=== PATIENT | male | born 1985 | race Caucasian/White ===

== ENCOUNTER → 2020-09-07 18:03 | Outpatient (CLI) | payer OTHER, SELFPAY ==
--- NOTE | ~2020-09-07 | XR_ITS ---
EXAMINATION: XR foot LT min 3V DATE: 09/07/2020 18:57 INDICATION: Left foot pain TECHNIQUE: Dorsoplantar, lateral, and 2 oblique views of the left foot were obtained. COMPARISON: None. FINDINGS: There is no fracture, dislocation, or subluxation. The bones, soft tissues, and joint space s are normal. IMPRESSION: 1. No acute osseous abnormality. Reviewed, dictated and finalized at location A.
== END ==
PROVIDERS: Visit Provider Family Medicine
DX: S93.602A Unspecified sprain of left foot, initial encounter (principal)
CPT/HCPCS: 73630

== ENCOUNTER → 2020-09-28 18:15 | Outpatient (CLI) | payer OTHER, SELFPAY ==
--- NOTE | ~2020-09-28 | MR_ITS ---
EXAMINATION: MR foot LT wo con DATE: 09/28/2020 19:08 INDICATION: Left foot pain and intermittent swelling over 3 months. TECHNIQUE: Magnetic resonance imaging (MRI) of the left fore/mid foot was performed without intraveno us contrast. Sequences included sagittal T1-weighted FSE, sagittal fluid sensitive FSE STIR, coronal PD-weighted FS FSE, coronal T1-weighted FSE, axial PD-weighted FS FSE, and axial PD-weighted FSE. COMPARISON: Left foot radiographs dated 09/07/2020 FINDINGS: Bone alignment is normal with normal marrow signal throughout. No fracture, reactive edema or patholo gic marrow replacing process. Joint spaces are normal with physiologic amount of fluid in the joint s paces. No cortical erosions or other suspicious lytic lesions. Visualized portions of the flexor and extensor tendons are normal. Lisfranc ligament as well as the collateral ligament complex at the meta tarsophalangeal and interphalangeal joints are normal. Normal muscle bulk and signal of the intrinsic musculature of the foot. IMPRESSION: 1. Normal MRI of the left mid and forefoot. Reviewed, dictated and finalized at location A.
== END ==
PROVIDERS: Visit Provider Family Medicine
DX: M79.672 Pain in left foot (principal)
CPT/HCPCS: 73718

== ENCOUNTER 2021-07-04 14:07 | Outpatient (CLI) | payer OTHER, SELFPAY ==
--- NOTE | ~2021-07-04 | US_ITS ---
EXAMINATION: US venous doppler [facility] DATE: 07/04/2021 14:52 INDICATION: Left lower limb pain and numbness TECHNIQUE: Grayscale ultrasound images without and with compression and Doppler ultrasound images of the bilateral lower extremity veins were obtained. COMPARISON: None. FINDINGS: The visualized portions of right common femoral vein, profunda (deep) femoral vein, femoral vein, pop liteal vein, posterior tibial veins, peroneal veins, gastrocnemius vein and greater saphenous vein ou tflow are patent. The visualized portions of left common femoral vein, profunda femoral vein, femoral vein, popliteal v ein, posterior tibial veins, peroneal veins, gastrocnemius vein and greater saphenous vein outflow ar e patent. IMPRESSION: 1. No deep venous thrombosis in either lower limb. Reviewed, dictated and finalized at location A.
== END 2021-07-04 14:08 | disposition home or self-care (01) ==
LOC: ANHIMG 14:12
PROVIDERS: PCP Physician Assistant; Visit Provider Physician Assistant
DX: R20.2 Paresthesia of skin (principal)
CPT/HCPCS: 93970

== ENCOUNTER 2021-07-30 12:54 | Outpatient (CLI) | payer OTHER, SELFPAY | END 2021-07-30 12:55 | disposition home or self-care (01) | LOC: ANHAUDASC 12:54 | PROVIDERS: PCP Physician Assistant; Visit Provider Otolaryngology | DX: H93.11 Tinnitus, right ear (principal) | CPT/HCPCS: 92557; 92567 ==

== ENCOUNTER 2021-08-08 10:16 | Outpatient (CLI) | payer OTHER, SELFPAY ==
--- NOTE | 2021-08-08 11:15 | NEURO_ITS ---
Impression: # Complains of foot pain. # Normal nerve conduction study. # No evidence of planter syndrome. # Normal needle/EMG exam. # Clinical correlation recommended. Nerve Conduction Studies Anti Sensory Summary Table Stim Site NR Peak (ms) P-T Amp (?V) Site1 Site2 Delta-P (ms) Dist (cm) Andrea (m/s) Left Sup Fibular Anti Sensory (Ant Lat Mall) 14 cm 2.6 29.9 14 cm Ant Lat Mall 2.6 16.0 62 Right Sup Fibular Anti Sensory (Ant Lat Mall) 14 cm 3.0 32.7 14 cm Ant Lat Mall 3.0 16.0 53 Left Sural Anti Sensory (Lat Mall) Calf 3.3 17.3 Calf Lat Mall 3.3 16.0 48 Right Sural Anti Sensory (Lat Mall) Calf 3.5 24.2 Calf Lat Mall 3.5 16.0 46 Motor Summary Table Stim Site NR Onset (ms) O-P Amp (mV) Site1 Site2 Delta-0 (ms) Dist (cm) Andrea (m/s) Left Lateral Plantar Motor (ADM) Med Mall 4.7 9.8 Right Lateral Plantar Motor (ADM) Med Mall 4.5 14.5 Left Peroneal Motor (Vastus Med) Ankle 4.9 1.1 Popit Ankle 7.3 37.0 51 Popit 12.2 1.2 Right Peroneal Motor (Vastus Med) Ankle 4.9 2.3 Popit Ankle 6.6 36.0 55 Popit 11.5 2.3 Left Tibial Motor (Abd Mendez Brev) Ankle 4.8 8.3 Knee Ankle 7.3 40.0 55 Knee 12.1 7.1 Right Tibial Motor (Abd Mendez Brev) Ankle 4.3 6.7 Knee Ankle 7.2 39.0 54 Knee 11.5 5.0 F Wave Studies NR F-Lat (ms) L-R F-Lat (ms) Left Peroneal (Mrkrs) (EDB) 47.89 0.70 Right Peroneal (Mrkrs) (EDB) 47.19 0.70 Left Tibial (Mrkrs) (Abd Hallucis) 48.21 0.08 Right Tibial (Mrkrs) (Abd Hallucis) 48.13 0.08 EMG Side Muscle Nerve Root Ins Act Fibs Amp Dur Recrt Comment Right AntTibialis Dp Br Fibular L4-5 Nml Nml Nml Nml Nml Right Gastroc Tibial S1-2 Nml Nml Nml Nml Nml Right Fibularis Long Sup Br Fibular L5-S1 Nml Nml Nml Nml Nml Right Flex Dig Long Tibial L5-S2 Nml Nml Nml Nml Nml Right Ext Dig Brev Dp Br Fibular L5, S1 Nml Nml Nml Nml Nml Left AntTibialis Dp Br Fibular L4-5 Nml Nml Nml Nml Nml Left Gastroc Tibial S1-2 Nml Nml Nml Nml Nml Left Fibularis Long Sup Br Fibular L5-S1 Nml Nml Nml Nml Nml Left Flex Dig Long Tibial L5-S2 Nml Nml Nml Nml Nml Left Ext Dig Brev Dp Br Fibular L5, S1 Nml Nml Nml Nml Nml MTDD
== END 2021-08-08 10:17 | disposition home or self-care (01) ==
LOC: ANHNEURO 10:17
PROVIDERS: PCP Physician Assistant; Visit Provider Physician Assistant
DX: R20.2 Paresthesia of skin (principal)
CPT/HCPCS: 95886; 95911

== ENCOUNTER 2021-09-25 14:20 | Outpatient (CLI) | payer OTHER, SELFPAY ==
--- NOTE | ~2021-09-25 | XR_ITS ---
XR lumbar spine 2-3V DATE: 09/25/2021 14:39 INDICATION: Left foot skin paresthesia TECHNIQUE: AP, lateral, coned lateral lumbosacral views COMPARISON: None FINDINGS: Normal alignment of the lumbar spine. No fracture or bone destruction or spondylolisthesis. The lumbar pedicles are intact. Lumbar and lumbosacral interspaces are well preserved. The sacroilia c joints are normal. IMPRESSION: Negative Reviewed, dictated and finalized at location A. IMPRESSION: Negative
--- NOTE | ~2021-09-25 | US_ITS ---
EXAMINATION: US art doppler w press LE DATE: 09/26/2021 09:37 CDT INDICATION: Paresthesias of the skin TECHNIQUE: Segmental pressures and plethysmographic and Doppler waveforms of the brachial and lower e xtremity arteries were obtained. COMPARISON: None. FINDINGS: Right and left brachial artery pressures of 103 mm Hg and 91 mm Hg, respectively, are concordant (nor mal difference <= 30 mmHg). The right high-thigh pressure index is 1.18 (normal > 1.2). The right ankle-brachial index (SHALONDA) is 1 .22 (normal >= 0.9-1.0). The right great toe-brachial index (TBI) is 0.75 (normal >= 0.60). The right lower extremity segmental pressure gradients are normal (normal gradients <= 20-30 mmHg between humberto cent levels on the same leg or the same levels on the two legs). Arterial Doppler waveforms are bipha sic and triphasic. The left high-thigh pressure index is 1.2. The left SHALONDA is 1.09 . The left TBI is 0.64. The left lowe r extremity segmental pressure gradients are normal. Arterial Doppler waveforms are mixed biphasic an d triphasic. IMPRESSION: 1. Normal bilateral ankle and toe brachial indices. Reviewed, dictated and finalized at location B.
== END 2021-09-25 14:21 | disposition home or self-care (01) ==
PROVIDERS: PCP Physician Assistant; Visit Provider Physician Assistant
DX: R20.2 Paresthesia of skin (principal)
CPT/HCPCS: 72100; 93923

== ENCOUNTER 2023-02-21 14:14 | Outpatient (CLI) | payer OTHER, SELFPAY ==
--- NOTE | ~2023-02-21 | US_ITS ---
US scrotum doppler INDICATION: Patient feels lumps bilaterally. TECHNIQUE: Testicular sonogram utilizing grayscale and color Doppler FINDINGS: The testes are normal in size and appearance. No focal lesions are seen. The right testes measures 3.8 x 3.2 x 2.6 cm centimeters, and the left testis measures 4.3 x 2.3 x 3.3 cm cm. There is normal vascular flow to both testes. There are bilateral epididymal cysts. There are benign bilateral extratesticular calcifications. There is a left varicocele. IMPRESSION: 1. Left varicocele. 2: Bilateral epididymal cysts. Reviewed, dictated and finalized at location A.
== END 2023-02-21 14:15 | disposition home or self-care (01) ==
LOC: ANHIMG 14:18
PROVIDERS: PCP Physician Assistant; Visit Provider Physician Assistant
DX: N50.89 Other specified disorders of the male genital organs (principal); I86.1 Scrotal varices; N50.3 Cyst of epididymis
CPT/HCPCS: 76870; 93976

== ENCOUNTER 2025-02-07 12:28 | Outpatient (CLI) | payer OTHER, SELFPAY ==
--- NOTE | ~2025-02-07 | XR_ITS ---
XR lumbar spine 2-3V 02/07/2025 12:54 Indication: Back pain Procedure: 3 views lumbar spine Comparison: 09/25/2021 Findings: Vertebral body heights are maintained. No significant disc narrowing. No fracture, subluxation or dislocation. No evidence for spondylolisthesis. Sacral foramen are symmetric. Impression: 1: No significant abnormality of the lumbar spine. Reviewed, dictated and finalized at location O. Impression: 1: No significant abnormality of the lumbar spine.
--- NOTE | ~2025-02-07 | XR_ITS ---
XR thoracic spine 3V 02/07/2025 12:54 Indication: Back pain and radiculopathy Procedure: 3 views thoracic spine Comparison: No prior studies for comparison. Findings: Vertebral body heights are maintained. Mild dextrocurvature of the thoracic spine. No paraspinal soft tissue abnormality. No foreign bodies. Surrounding osseous structures within normal limits. No acute fracture or traumatic malalignment. Impression: 1: Mild dextroscoliosis. Reviewed, dictated and finalized at location O. Impression: 1: Mild dextroscoliosis.
== END 2025-02-07 12:29 | disposition home or self-care (01) ==
PROVIDERS: PCP Physician Assistant Medical; Visit Provider Pain Medicine Interventional Pain Medicine
DX: M47.26 Other spondylosis with radiculopathy, lumbar region (principal); M47.27 Other spondylosis with radiculopathy, lumbosacral region; G90.09 Other idiopathic peripheral autonomic neuropathy; G96.191 Perineural cyst
CPT/HCPCS: 72072; 72100